=== PATIENT | male | born 1990 | race Caucasian/White ===

== ENCOUNTER 2020-09-24 02:40 | Emergency (ER) | payer MEDICAID ==
[~2020-09-24] VITALS: Ht 180.3 cm; Wt 86.2 kg
[2020-09-24 02:44] VITALS: BP 123/68
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
--- NOTE | 2020-09-24 02:46 | NUR ---
Patient transfered to bed 6 via gurney. Patient able to ambulate to bed with steady gait.
--- NOTE | 2020-09-24 02:48 | NUR ---
ERMD at bedside for Medical Evaluation.
--- NOTE | 2020-09-24 03:00 | NUR ---
"I'M JUST GOING TO LEAVE, I'M FINE". IS AWAKE, ALERT AND ORIENTED. IS REFUSING IV AND TREATMENT
--- NOTE | 2020-09-24 03:06 | NUR ---
AMBULATED OUT OF ER, LEFT AMA
== END 2020-09-24 03:06 | disposition left against medical advice (07) ==
LOC: MED 02:40
DX: T40.412A Poisoning by fentanyl or fentanyl analogs, intentional self-harm, initial encounter (principal); R41.82 Altered mental status, unspecified; Y92.89 Other specified places as the place of occurrence of the external cause
CPT/HCPCS: 99283